=== PATIENT | male | born 1930 | race Caucasian/White ===

== ENCOUNTER 2019-02-23 10:22 | Emergency (ER) | payer OTHER ==
[~2019-02-23] VITALS: Ht 165.1 cm; Wt 62.1 kg
[2019-02-23 10:32] VITALS: BP 125/66
--- NOTE | 2019-02-23 10:49 | NUR ---
88 Y/O M BIB FAMILY S/P MECANICAL FALL YESTERDAY. PER PT HE WAS PICKING PEEWEE OFF OF HIS LEMON TREE WHEN HE TRIPPED AND FELL. DENIES LOC. DENIES N/V. PT HAS ABRASIONS TO RIGHT SIDE OF FOREHEAD AND RIGHT CHEEK. PT HAS SKIN TEAR TO RIGHT HAND, U-SHAPED, OPEN 5CM X 2CM, NO BLEEDING NOTED. PT PAIN LEVEL 7/10, ACHING FROM RIGHT SHOULDER TO RIGHT HAND. PT TOOK TYELONL AT 8AM WITH SOME RELIEF. ALLERGIES: NKA. MED HX: DM, HTN, HYPERLIPIDEMIA. SAFETY MEASURES IN PLACE. WAITING FOR ERMD TO EVALUATE PT.
--- NOTE | 2019-02-23 10:55 | NUR ---
DR. GUZMAN EVALUATING PT AT BEDSIDE
[2019-02-23] MEDS ORDERED: ACETAMINOPHEN/CODEINE 300/30MG 1 TAB PO ONE (11:00)
[2019-02-23] MEDS ORDERED: LIDOCAINE/EPI 2% 1:100000 20 ML VIAL INJ ONE (11:00)
--- NOTE | 2019-02-23 11:06 | NUR ---
PT LEFT FOR CT AND XRAY VIA WHEELCHAIR
--- NOTE | 2019-02-23 11:15 | NUR ---
PT SOAKING RIGHT HAND IN BETADINE AND NS AT BEDSIDE
--- NOTE | 2019-02-23 11:47 | NUR ---
RECEIVED REPORT FROM RAYNA. PT RESTING IN BED COMFORTABLY. NO BLEEDING FROM LACERATION SITE. NO DISTRESS NOTED. NO C/O PAIN AT THIS TIME. SON AT THE BED SIDE. WILL CONTINUE TO MONITOR.
[2019-02-23] MEDS ORDERED: BACITRACIN OINT 500 UNITS/GM PKT TP ONE (12:20)
--- NOTE | 2019-02-23 12:30 | NUR ---
XYLOCAINE MED ADMINISTERED BY ER MD DURING PROCEDURE. NICA.
[2019-02-23 12:58] VITALS: BP 140/68
--- NOTE | 2019-02-23 13:00 | NUR ---
Patient discharged with v/s stable. Written and verbal after care instructions given and explained. Patient alert, oriented and verbalized understanding of instructions. Ambulatory with [facility]. All questions addressed prior to discharge. ID band removed. Patient advised to follow up with PMD. Rx of KEFLEX AND PAIN MED given. Patient educated on indication of medication including possible reaction and side effects. Opportunity to ask questions provided and answered.
== END 2019-02-23 13:00 | disposition home or self-care (01) ==
LOC: MED 10:22
DX: S61.411A Laceration without foreign body of right hand, initial encounter (principal); S00.01XA Abrasion of scalp, initial encounter; S00.81XA Abrasion of other part of head, initial encounter; E11.9 Type 2 diabetes mellitus without complications; I10 Essential (primary) hypertension; E78.5 Hyperlipidemia, unspecified; W01.0XXA Fall on same level from slipping, tripping and stumbling without subsequent striking against object, initial encounter; Y93.89 Activity, other specified; Y92.096 Garden or yard of other non-institutional residence as the place of occurrence of the external cause; Y99.8 Other external cause status
CPT/HCPCS: 12002; 70450; 70486; 73110; 90471; 90715; 99284; J2001